=== PATIENT | male | born 1990 | race Caucasian/White ===

== ENCOUNTER 2019-12-05 02:54 | Emergency (ER) | payer BC, SELFPAY ==
--- NOTE | ~2019-12-05 | CT_ITS ---
EXAMINATION: CT brain wo con DATE: 12/05/2019 03:33 INDICATION: Headache. TECHNIQUE: Computed tomography (CT) of the head was performed without intravenous contrast. The mA wa s adjusted according to patient size. Iterative reconstruction technique was employed. The dose-lengt h product was 605.33 mGy-cm. COMPARISON: None FINDINGS: There is no intracranial hemorrhage, acute infarction, or abnormal intracranial mass lesion . The ventricles are normal in size. 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 The mastoid air cell s are normal. The orbits are normal. IMPRESSION: 1. Normal brain. Reviewed, dictated and finalized at location A. IMPRESSION: 1. Normal brain.
[2019-12-05 03:00] VITALS: BP 157/92; PULSE 80; RESP 20; O2SAT 97
--- NOTE | 2019-12-05 03:15 | PC.NURSE ---
PT STATES HAS INCREASED ENERGY DRINKS DAILY. YESTERDAY HAD #3 FROM 4P-10P.
--- NOTE | 2019-12-05 03:17 | ED.GENADULT ---
HPI - General Adult General Chief complaint: Headache Stated complaint: head pain History of Present Illness HPI narrative: Epifanio is a previously healthy 29M that presented to the ED with a [place] T[place]. He was having intercourse approximately 1 hour before whe he had a sudden onset, terrible occipita [place]. It was the worst [place] of his life and he was on the ground writhing in pain. He admits nausea but no vomiting. He took 2 Naproxen that did provide some good relief. No changes in vision or hearing. No CP or SOB. No LOC. No trauma. No muscle weakness. Admits that he has been sleep deprived lately, drinks multiple energy drinks daily as well as a few double shots. Related Data Allergies Allergy/AdvReac Type Severity Reaction Status Date / Time No Known Allergies Allergy Unverified 02/16/18 16:38 Review of Systems Constitutional: Constitutional: Denies chills, Denies fever(s) and Denies weakness Eyes: Eyes: Reports no additional eye complaints and Denies change in vision ENT: Reports system reviewed and no additional complaints, except as documented Cardiovascular: Cardiovascular: Reports no additional cardiovascular complaints Respiratory: Respiratory: Reports no additional respiratory complaints Gastrointestinal: Gastrointestinal: Reports no additional gastrointestinal complaints Genitourinary: Genitourinary: Reports no additional male genitourinary complaints Musculoskeletal: Musculoskeletal: Reports no additional musculoskeletal complaints Integumentary/Breasts: Skin/Breast: Reports system reviewed and no additional complaints, except as docu Neurologic: Denies dizziness, Denies syncope, Reports headache(s) and Denies weakness Psychiatric: Psychiatric: Reports no additional psychiatric complaints Endocrine: Endocrine: Reports no additional endocrine complaints Hematologic/Lymphatic: Hematologic/Lymphatic: Reports no additional hematologic/lymphatic complaints Allergic/Immunologic: Allergic/Immunologic: Reports no additional allergic/immunologic complaints Exam Const: General: healthy appearing, no acute distress and alert; No confusion Orientation/consciousness: patient oriented x3 Limitations: No altered mental status HENMT: Other: Normocephalic, Atraumatic, EOMI, moist mucous membranes Eyes: Conjunctivae: conjunctivae normal Pupils: Equal, round and reactive pupils present Direct Ophthalmoscopy: no photophobia Neck: Neck: normal visual inspection Resp: Effort & Inspection: normal respiratory effort Auscultation: clear to auscultation bilaterally Cardio: Rate: regular rate Rhythm: regular rhythm Heart sounds: no murmurs GI: GI Palp: Yes Soft to palpation and No Tenderness to palpation present (GI) Skin: General skin exam: normal color Rashes: no rashes Neuro: General: patient oriented x3, moves all extremities, no meningeal signs, no focal motor deficits and CN's II-XI intact bilaterally Other: Normal finger to nose, normal heel to mckenna, normal gait, normal speech, was able to look around room twisting, flexing and extending his neck without any pain. Extrem: General: normal to inspection Psych: Mental Status: mental status grossly normal Course Course Emergency Course: Epifanio was seen and evaluated. Ordered labs and CT head. I offered pain medication but instructed him that I could not give him anything sedating unless he had sombody to drive him. He stated that he did not want to wake his kids up and have his S.O. come get him so he refused pain meds. When offered tylenol he refused this as well. CT head was negative. He was educated on causes of [place] TORRE including energy drinks, alcohol, stress and sleep deprivation. A script for 5 pills of Fioricet was sent. PDMP was not functioning so it could not be checked. Vital Signs Vital signs: Vital Signs Pulse Rate 80 12/05/19 03:00 Respiratory Rate 20 12/05/19 03:00 Blood Pressure 157/92 H 12/05/19 03:00 Pulse Oximetry 97 12/05/19 03:00
[2019-12-05 03:26] LABS: Basophils Absolute Auto 0.03 K/mm3 (0.00-0.10); Basophils Percent Auto 0.4 % (0.0-1.0); Eosinophils Absolute Auto 0.13 K/mm3 (0.02-0.50); Eosinophils Percent Auto 1.6 % (1.0-6.0); Hematocrit 41.7 % (40.0-54.0); Hemoglobin 14.6 g/dL (14.0-18.0); Immature Granulocyte Absolute 0.02 K/mm3 (0.00-0.00); Immature Granulocyte Percent A 0.3 % (0.0-0.0); Lymphocytes Absolute Auto 2.38 K/mm3 (1.10-4.50); Lymphocytes Percent Auto 30.1 % (18.0-42.0); Mean Corpuscular Hemoglobin 30.9 pg (27.0-31.0); Mean Corpuscular Volume 88.3 fL (78.0-102.0); Mean Platelet Volume 10.3 fl (8.7-11.0); Monocytes Absolute Auto 0.92 K/mm3 (0.10-0.90); Monocytes Percent Auto 11.6 % (2.0-11.0); Neutrophils Absolute Auto 4.4 K/mm3 (1.7-7.2); Platelet Count Result 250 K/mm3 (150-420); Red Blood Count 4.72 M/mm3 (4.70-6.10); Red Cell Distribution Width 11.9 % (11.6-14.4); White Blood Count 7.9 K/mm3 (4.8-10.8)
[2019-12-05 03:36] LABS: Prothrombin Time 10.7 Seconds (9.64-11.0)
[2019-12-05 03:41] LABS: Alanine Aminotransferase 41 U/L (16-63); Albumin Level 4.3 g/dL (3.4-5.0); Alkaline Phosphatase 100 U/L (46-116); Anion Gap 12.3 mmol/L (7-16); Aspartate Amino Transferase 21 U/L (15-37); Bilirubin,Total 0.3 mg/dL (0.00-1.00); Blood Urea Nitrogen 16 mg/dL (7-18); Calcium 9.4 mg/dL (8.5-10.1); Carbon Dioxide 29 mmol/L (21-32); Chloride 103 mmol/L (98-108); Estimated CRCL calculation 84 ml/min; Estimated Glomerular Filt Rate > 60; Glucose 115 mg/dL (70-99); Osmolality Calculated 294 mOsm/kg (285-295); Potassium 3.3 mmol/L (3.5-5.1); Sodium 141 mmol/L (136-145); Total Protein 7.4 g/dL (6.4-8.2)
--- NOTE | 2019-12-05 03:42 | PC.NURSE ---
PT REPORTS VERY LITTLE PAIN TO BACK OF HEAD. 10/14.
--- NOTE | 2019-12-05 04:07 | PC.NURSE ---
DISCHARGE PACKET REVIEWED WITH PT PAGE BY PAGE. NO CONCERNS AT THIS TIME
== END 2019-12-05 04:06 | disposition home or self-care (01) ==
PROVIDERS: Emergency Provider Family Medicine
DX: R51 Headache (principal)
CPT/HCPCS: 36415; 70450; 80053; 85025; 85610; 99283; 99284

== ENCOUNTER 2021-12-28 09:36 | Outpatient (CLI) | payer OTHER, SELFPAY ==
--- NOTE | ~2021-12-28 | XR_ITS ---
EXAMINATION: XR knee LT 3V DATE: 12/28/2021 09:59 INDICATION: Left knee pain. TECHNIQUE: 3 views of left knee were obtained. COMPARISON: None. FINDINGS: Bone alignment is normal. No fracture. Joint spaces are well maintained. There is no knee j oint effusion. There is anterior soft tissue swelling. IMPRESSION: 1. No arthritis. Reviewed, dictated and finalized at location A. IMPRESSION: 1. No arthritis.
== END 2021-12-28 09:37 | disposition home or self-care (01) ==
LOC: CHSIMG 09:41
PROVIDERS: PCP Nurse Practitioner Family; Visit Provider Nurse Practitioner Family
DX: M25.562 Pain in left knee (principal)
CPT/HCPCS: 73562